=== PATIENT | male | born 1945 | race Caucasian/White ===

== ENCOUNTER 2023-07-09 11:26 | Emergency (ER) | payer OTHER ==
[~2023-07-09] VITALS: Ht 167.6 cm; Wt 52.2 kg
[2023-07-09 11:30] VITALS: BP_SYST 117; PULSE 84; RESP 20; TEMP 97.8; O2SAT 97
[2023-07-09 12:15] LABS: BASOPHILS % (AUTO) 0.3 % (0.0-2.0); EOSINOPHILS % (AUTO) 0.3 % (0.0-4.0); HEMATOCRIT 42.9 % (36-54); LYMPHOCYTES # (AUTO) 1.3 K/uL (1.0-5.5); MEAN CORPUSCULAR HEMOGLOBIN 30 pg (27-31); MEAN CORPUSCULAR HGB CONC 33 % (32-36); MEAN CORPUSCULAR VOLUME 92 fL (79.0-98.0); MONOCYTES # (AUTO) 0.7 K/uL (0.0-1.0); MONOCYTES % (AUTO) 8.5 % (1.7-9.3); NEUTROPHILS % (AUTO) 74.9 % (40.0-70.0); PLATELET COUNT (AUTO) 235 K/uL (130-430); RED BLOOD CELL COUNT(AUTO) 4.69 MIL/uL (4.2-6.2); RED CELL DISTRIBUTION WIDTH 13.2 % (9.0-15.0)
[2023-07-09 12:29] LABS: ANION GAP 7 (5-15); CALCIUM 9.2 mg/dL (8.4-11.0); CARBON DIOXIDE 24 mmol/L (23-29); CHLORIDE 103 mmol/L (98-107); CREATININE 1.03 mg/dL (0.55-1.30); GLUCOSE 107 mg/dL (74-106); POTASSIUM 4.1 mmol/L (3.5-5.1); PROTHROMBIN TIME 10.5 SECS (9.5-12.5); SODIUM SERUM 134 mmol/L (136-145); UREA NITROGEN, BLOOD 26 mg/dL (8-21)
[2023-07-09 12:41] LABS: ALANINE AMINOTRANSFERASE 10 U/L (12-78); ALBUMIN 3.5 g/dL (3.4-4.8); AMYLASE 46 U/L (0-100); ASPARTATE AMINOTRANSFERASE 25 U/L (10-37); LIPASE 21 U/L (16-77); TOTAL BILIRUBIN 1.4 mg/dL (0.0-1.0); TOTAL PROTEIN, SERUM 6.3 g/dL (6.4-8.3)
[2023-07-09 12:48] LABS: BILIRUBIN,URINE 1+ (NEGATIVE); BLOOD, URINE NEGATIVE (NEGATIVE); CLARITY/URINE CLEAR (CLEAR); COLOR,URINE YELLOW (YELLOW); GLUCOSE,URINE TRACE (NEGATIVE); KETONES,URINE TRACE (NEGATIVE); LEUKOCYTE ESTERASE ,URINE NEGATIVE (NEGATIVE); NITRITE, URINE NEGATIVE (NEGATIVE); PROTEIN URINE TRACE (NEGATIVE)
[2023-07-09] MEDS ORDERED: CYAN100097 PO (13:01)
[2023-07-09] MEDS ORDERED: PIMA34CA PO (13:01)
[2023-07-09] MEDS ORDERED: LIP10 PO (13:01)
[2023-07-09] MEDS ORDERED: VITD2000 PO (13:01)
[2023-07-09] MEDS ORDERED: CARB1TAB10 PO (13:01)
[2023-07-09] MEDS ORDERED: PRAM1TAB5 PO (13:01)
[2023-07-09 13:19] LABS: BACTERIA,URINE FEW /HPF (None Seen); RBC,URINE 0-3 /HPF (0-3); WBC,URINE 0-3 /HPF (0-3)
[2023-07-09] MEDS ORDERED: NA P133E41 RC (13:38)
[2023-07-09] MEDS ORDERED: MAGN296S8 PO (13:38)
[2023-07-09] MEDS ORDERED: SODIUM PHOSPHATE,MONO-DIBASIC 133 ML ENEMA RC ONE (13:45)
[2023-07-09 14:41] VITALS: BP_SYST 138; PULSE 72; RESP 18; TEMP 98.5; O2SAT 96
== END 2023-07-09 14:39 | disposition home or self-care (01) ==
LOC: SED 11:26
DX: K59.00 Constipation, unspecified (principal); R10.84 Generalized abdominal pain; Z79.899 Other long term (current) drug therapy
CPT/HCPCS: 36415; 76376; 80053; 81000; 81001; 81015; 82150; 83605; 83690; 85025; 85610-TC; 85730-TC; 99284